=== PATIENT | male | born 1945 | race Asian ===

== ENCOUNTER 2017-07-13 05:28 | Emergency (ER) | payer MEDICARE, MEDICAID ==
[~2017-07-13] VITALS: Ht 162.6 cm; Wt 59.4 kg
[2017-07-13 05:37] VITALS: Ht 162.6 cm; Wt 59.4 kg
[2017-07-13 06:30] LABS: BASOPHIL % 0.6 % (0-2); PLATELET COUNT 199 x10^3mcL (130-400)
[2017-07-13 06:48] LABS: CALCIUM 8.5 mg/dL (8.5-10.1); CARBON DIOXIDE 31.2 mmol/L (21-32); CHLORIDE SERUM 102 mmol/L (98-107); CREATININE SERUM 1.1 mg/dL (0.7-1.3); GLUCOSE SERUM 127 mg/dL (74-106); POTASSIUM SERUM 4.5 mmol/L (3.5-5.1); SODIUM SERUM 137 mmol/L (136-145)
[2017-07-13 06:51] LABS: ALBUMIN 3.6 g/dL (3.4-5.0); ALKALINE PHOSPHATASE 51 U/L (46-116); ALT/SGPT 42 U/L (16-63); AST/SGOT 22 U/L (15-37); BILIRUBIN TOTAL 0.59 mg/dL (0.20-1.00); LIPASE 99 IU/L (73-393); TOTAL PROTEIN, SERUM 6.9 g/dL (6.4-8.2)
[2017-07-13 07:11] LABS: rbc morphology (normal/abnorm) ABNORMAL (NORMAL)
[2017-07-13 07:15] LABS: UA SPECIFIC GRAVITY 1.025 (1.005-1.035); microscopic required? YES; urine erythrocyte 1+ (NEGATIVE)
[2017-07-13 08:56] VITALS: BP 147/81
== END 2017-07-13 08:56 | disposition home or self-care (01) ==
LOC: ED 05:28
PROVIDERS: Emergency Medicine
DX: N23 Unspecified renal colic (principal); I10 Essential (primary) hypertension; E11.9 Type 2 diabetes mellitus without complications; Z90.49 Acquired absence of other specified parts of digestive tract
CPT/HCPCS: J1885; J2405; J3010; J7030